=== PATIENT | female | born 1985 | race Caucasian/White ===

== ENCOUNTER 2023-11-09 06:07 | Day surgery (SDC) | payer OTHER, SELFPAY ==
[2023-11-06 08:41] VITALS: BMI 24.9
[2023-11-06 10:45] LABS: % Basophils 0.8 % (0-2); % Eosinophils 3.4 % (0-6); % Immature Granulocytes 0.4 % (0-0.5); % Lymphocytes 30.7 % (20.5-51.1); % Neutrophils 57.7 % (42.2-75.2); Absolute Eosinophils 0.2 10^3/uL (0-0.7); Absolute Lymphocytes 1.5 10^3/uL (1.2-3.4); Absolute Monocytes 0.3 10^3/uL (0.1-0.6); Absolute Neutrophils 2.7 10^3/uL (1.4-6.5); Hematocrit 38.7 % (37.0-47.0); Hemoglobin 13.6 g/dL (12.0-16.0); Mean Corp Hgb Conc. 35.1 g/dL (33.0-37.0); Mean Corpuscular Hgb 31.6 pg (27.0-31.0); Nucleated Red Blood Cells % 0 %; Platelet Count 201 10^3/uL (130-400); Red Cell Dist. Width 12.3 % (11.5-14.5); White Blood Cell Count 4.7 10^3/uL (4.8-10.8)
[2023-11-06 10:53] LABS: Blood Urea Nitrogen 15 mg/dl (7-17); Calcium 9.7 mg/dl (8.4-10.2); Carbon Dioxide 26 mmol/L (22-30); Chloride 102 mmol/L (98-107); Estimated Creatinine Clearance 99 ml/min; Glucose 87 mg/dl (70-99); Potassium 4.2 mmol/L (3.5-5.1); Sodium 142 mmol/L (135-145); eGFR > 60.00
[2023-11-06 11:09] LABS: Beta HCG Quantitative < 2.39 mIU/ml
--- NOTE | 2023-11-07 12:27 | PTCARENOTE ---
Patient insists I contact anesth. regarding continuing her '[employer]' supplement prior to surgery. Provided Dr. Boyd product info- he stated this was fine from anesth perspective.
[2023-11-09] VITALS (7 sets, daily range): BP systolic 108–130; BP diastolic 65–82; BMI 24.9
[2023-11-09] MEDS: NORMOSOL-R/PLASMALYTE-A 1000 IV (07:20)
--- NOTE | 2023-11-09 09:11 | W.IMMPOSTOP ---
Surgical Immed Post Op Note
-
Primary Surgeon: Deana Clemente DO
Assisting Surgeon: none
Pre-op Diagnosis: HSIL/CIN2
Post-op Diagnosis: same
Procedure Performed: LEEP ECC with colposcopy
Anesthesia Type: general Dr. Boyd
Specimen / Cultures: 1. LEEP 2. ECC
Estimated Blood Loss: 10ml
Complications: none
Operative Findings: Satisfactory colposcopy, acetowhite uptake 6-7:00 and 11:00. Lugols negative uptake at same areas.
Specimen excised- one large specimen piece. Second leep excision taken along patient left lateral edge from 1-3:00 to excise more tissue. Attached with vicryl suture to larger specimen to orient. Silk suture placed 12:00.
Counts correct times 2.
Stable to recovery.
== END 2023-11-09 09:35 | disposition home or self-care (01) ==
LOC: SDS 06:07
PROVIDERS: ATTENDING PHYSICIAN Obstetrics & Gynecology; FAMILY PHYSICIAN Internal Medicine
DX: D06.0 Carcinoma in situ of endocervix (principal)
CPT/HCPCS: 57522; 88305; 88307; 36415; 80048; 84702; 85025; 86850; 86900; 86901; 88341; 88342